=== PATIENT | female | born 1985 | race Two or more races ===

== ENCOUNTER 2019-07-29 18:50 | Emergency (ER) | payer BC ==
--- NOTE | 2019-07-29 19:16 | EDM.PDOC ---
ED HPI GENERAL MEDICAL PROBLEM - General Chief Complaint: Genitourinary Problem Stated Complaint: UTI WITH BLEEDING Time Seen by Provider: 07/29/19 19:05 Source of Information: Reports: Patient History Limitations: Reports: No Limitations - History of Present Illness INITIAL COMMENTS - FREE TEXT/NARRATIVE: 33-year-old female with dysuria and increased urinary frequency for 1 day. No fever or chills, no significant back pain, no nausea or vomiting. No previous history of UTIs. Onset: Sudden (Symptoms started suddenly) Duration: Hour(s): (6-8 hours ago) Associated Symptoms: Reports: No Other Symptoms Lower Abdomen Pain Score (Numeric/FACES): 10 - Related Data Allergies Allergy/AdvReac Type Severity Reaction Status Date / Time No Known Allergies Allergy Verified 07/29/19 19:09 Home Meds: Home Meds NK [No Known Home Meds] 11/03/18 [History] Past Medical History Genitourinary History: Reports: None [employer] History: Reports: - Past Surgical History Female Surgical History: Reports: Section, Tubal Ligation Social & Family History - Family History Family Medical History: Noncontributory - Tobacco Use Smoking Status *Q: Never Smoker Second Hand Smoke Exposure: No - Caffeine Use Caffeine Use: Reports: Coffee, Soda - Recreational Drug Use Recreational Drug Use: No ED ROS GENERAL - Review of Systems Review Of Systems: See Below Constitutional: Denies: Fever, Chills Respiratory: Denies: Shortness of Breath Cardiovascular: Denies: Chest Pain GI/Abdominal: Denies: Abdominal Pain, Nausea, Vomiting : Reports: Dysuria, Frequency, Urgency Skin: Reports: No Symptoms ED EXAM, RENAL/ - Physical Exam Exam: See Below Exam Limited By: No Limitations General Appearance: Alert, No Apparent Distress Respiratory/Chest: No Respiratory Distress, Lungs Clear GI/Abdominal: Non-Tender Back Exam: No: CVA Tenderness (R), CVA Tenderness (L) Neurological: Alert, Oriented Skin Exam: Warm, Dry Course - Vital Signs Last Recorded V/S: Last Vital Signs Temp Pulse 72 07/29/19 19:07 Resp 18 07/29/19 19:07 BP 115/61 07/29/19 19:07 Pulse Ox 93 L 07/29/19 19:07 - Orders/Labs/Meds Orders: Active Orders 24 hr Category Date Time Status CULTURE URINE [RM] Stat Lab 07/29/19 19:22 Received Labs: Laboratory Tests 07/29/19 Range/Units 19:02 Urine Color Red A (YELLOW) Urine Appearance Cloudy A (CLEAR) Urine pH 5.5 (5.0-8.0) Ur Specific [place] 1.030 (1.008-1.030) Urine Protein >=300 H (NEGATIVE) mg/dL Urine Glucose (UA) Normal (NEGATIVE) mg/dL Urine Ketones Negative (NEGATIVE) mg/dL Urine Occult Blood Large (NEGATIVE) Urine Nitrite Negative (NEGATIVE) Urine Bilirubin Negative (NEGATIVE) Urine Urobilinogen 0.2 (0.2-1.0) EU/dL Ur Leukocyte Esterase Negative (NEGATIVE) Urine RBC Packed H (0-5) Urine WBC 5-10 H (0-5) Ur Epithelial Cells Few Amorphous Sediment Not seen Urine Bacteria Moderate Urine Mucus Not seen - Re-Assessments/Exams Free Text/Narrative Re-Assessment/Exam: 07/29/19 19:20 UA was obtained which was markedly positive, many bacteria, WBCs and RBCs. A culture was initiated and the patient was started on Macrobid twice daily for 7 days. She should return in 2-3 days if not improving satisfactorily. We will inform her of the culture results if needed. She can return sooner if worsening such as nausea or vomiting or increased pain or fever. Departure - Departure Time of Disposition: 19:32 Disposition: Home, Self-Care 01 Clinical Impression: UTI (urinary tract infection) Qualifiers: Urinary tract infection type: acute cystitis Hematuria presence: with hematuria Qualified Code(s): N30.01 - Acute cystitis with hematuria - Discharge Information Instructions: Urinary Tract Infection, Adult Referrals: PCP,None [Primary Care Provider] - Forms: ED Department Discharge Care Plan Goals: Take antibiotic twice daily as prescribed and return if not improving in 2-3 days. Return sooner if worsening such as fever, increased pain or vomiting the medication. - My Orders Last 24 Hours: My Active Orders 07/29/19 19:22 CULTURE URINE [RM] Stat - Assessment/Plan Last 24 Hours: My Active Orders 07/29/19 19:22 CULTURE URINE [RM] Stat
== END 2019-07-29 19:32 | disposition home or self-care (01) ==
LOC: JP.ED 18:50
DX: N30.01 Acute cystitis with hematuria (principal); Z98.51 Tubal ligation status
CPT/HCPCS: 81001; 87086; 87088; 87186; 99284